=== PATIENT | male | born 1945 | race Caucasian/White ===

== ENCOUNTER → 2016-11-09 | Outpatient (CLI) | payer MEDICARE, OTHER ==
--- NOTE | 2016-11-09 14:06 | CR ---
EXAMINATION: Two-view chest (PA and Lateral views). HISTORY: Atrial fibrillation. FINDINGS: The trachea is midline. The cardiomediastinal silhouette is within normal limits. No pulmonary infil trates, effusions or pneumothorax. Osseous structures appear unremarkable. IMPRESSION: No acute cardiopulmonary process.
[2016-11-09 14:16] LABS: CHLORIDE,CL 107 mmol/L (98-110); SODIUM,NA 141 mmol/L (136-146)
== END ==
LOC: MW.CHIM 13:23
PROVIDERS: ATTEND Internal Medicine
DX: I48.92 Unspecified atrial flutter (principal); I48.0 Paroxysmal atrial fibrillation; R07.89 Other chest pain; M54.9 Dorsalgia, unspecified; Z01.818 Encounter for other preprocedural examination
CPT/HCPCS: 36415; 71020; 71020-26; 80053; 85025; 85610; 85730; 99214

== ENCOUNTER → 2016-11-10 | Outpatient (CLI) | payer MEDICARE, OTHER ==
--- NOTE | 2016-11-10 11:27 | PCM.PRNOTE ---
- Free Text/Narrative Note: Lexiscan Indication pre-op Patient was supervised today during infusion portion of the stress test. The patient received Regadenoson 0.4 mg IV and nuclear agent using standard protocol. Sestamibi Tm99 25 Mci was gievn afterwards Baseline blood pressure is 131/77 with a heart rate 65 EKG sinus rhythm with ST abnormalities Vital signs at injection: Peak blood pressure 115/64 with a heart rate of 76 Vital signs at 4 minutes post injection: Peak blood pressure 122/67 with a heart rate of 72 EKG sinus rhythm without further ST changes Patient complained of apprehensiveness Adverse effects from Elly scan none Test done due to end of protocol Impression 1. electrocardiographically nondiagnostic for ischemia due to chemical protocol 2. nuclear imaging pending
--- NOTE | 2016-11-10 15:43 | NM ---
EXAMINATION: Nuclear medicine myocardial perfusion study HISTORY: Atrial flutter. PROCEDURE: Following intravenous administration of 0.4 mg of Lexiscan and 27.5 mCi of technetium 99m sestamib i, stress SPECT images including gating imaging was performed. FINDINGS: Stress myocardial SPECT images demonstrates mildly decreased uptake along the inferior wall. Most l ikely diaphragmatic attenuation. Review of gated images demonstrates normal wall motion, contractility and wall thickening. The left ventricular ejection fraction is 64 %. The left ventricular chamber size is normal. IMPRESSION: 1. Mildly decreased uptake along the inferior wall, likely diaphragmatic attenuation. Correlate with rest imaging. 2. Normal ventricular chamber size and function with ejection fraction of 54 %.
== END ==
LOC: MW.NM 09:39
PROVIDERS: ATTEND Internal Medicine
DX: I48.92 Unspecified atrial flutter (principal); Z13.6 Encounter for screening for cardiovascular disorders
CPT/HCPCS: 78451; 93017; A9500; J2785

== ENCOUNTER 2017-06-17 00:29 | Emergency (ER) | payer MEDICARE, OTHER ==
--- NOTE | 2017-06-17 01:05 | EDM.PDOC ---
ED HPI GENERAL MEDICAL PROBLEM - General Chief Complaint: ENT Problem Stated Complaint: COLD Time Seen by Provider: 06/17/17 01:03 Source of Information: Reports: Patient - History of Present Illness INITIAL COMMENTS - FREE TEXT/NARRATIVE: HISTORY AND PHYSICAL: History of present illness: [Patient presents with cold symptoms over the last 2-4 weeks runny nose nasal congestion, now complains of swelling sensation around his eyes and sinus pain right greater than left and a mild conjunctivitis No fever nausea vomiting chills sweats no visual changes or ocular pain ] Review of systems: As per history of present illness and below otherwise all systems reviewed and negative. Past medical history: As per history of present illness and as reviewed below otherwise noncontributory. Surgical history: As per history of present illness and as reviewed below otherwise noncontributory. Social history: No reported history of drug or alcohol abuse. Family history: As per history of present illness and as reviewed below otherwise noncontributory. Physical exam: HEENT: Atraumatic, normocephalic, pupils reactive, negative for conjunctival pallor or scleral icterus, mucous membranes moist, throat clear, neck supple, nontender, trachea midline. Sinus tenderness right greater than left supraorbital and infraorbital sinuses involved boggy nasal mucosa with copious nasal discharge Lungs: Clear to auscultation, breath sounds equal bilaterally, chest nontender. Heart: S1S2, regular, negative for clicks, rubs, or JVD. Abdomen: Soft, nondistended, nontender. Negative for masses or hepatosplenomegaly. Negative for costovertebral tenderness. Pelvis: Stable nontender. Genitourinary: Deferred. Rectal: Deferred. Extremities: Atraumatic, negative for cords or calf pain. Neurovascular unremarkable. Neuro: Awake, alert, oriented. Cranial nerves II through XII unremarkable. Cerebellum unremarkable. Motor and sensory unremarkable throughout. Exam nonfocal. Diagnostics: [Influenza Strep] Therapeutics: [Amoxicillin 500 by mouth 3 times a day 10 days Gent Ophthalmic ] Impression: [Acute sinusitis Acute conjunctivitis] Definitive disposition and diagnosis as appropriate pending reevaluation and review of above. right nasal Pain Score (Numeric/FACES): 3 - Related Data Allergies Allergy/AdvReac Type Severity Reaction Status Date / Time No Known Allergies Allergy Verified 06/17/17 00:42 Home Meds: Home Meds Levothyroxine Sodium [Synthroid] 125 mcg PO DAILY 02/21/14 [History] Lutein Extract/Zeaxanthin Ext [Lutein 15 MG Softgel] 1 each PO DAILY 02/21/14 [ History] Rosuvastatin Calcium [Crestor] 5 mg PO DAILY 02/21/14 [History] Past Medical History HEENT History: Reports: None Cardiovascular History: Reports: Other (See Below) Other Cardiovascular History: Atrial Flutter Respiratory History: Reports: None Gastrointestinal History: Reports: None Genitourinary History: Reports: None Musculoskeletal History: Reports: None Neurological History: Reports: None Psychiatric History: Reports: None Endocrine/Metabolic History: Reports: Other (See Below) Other Endocrine/Metabolic History: Hashimotos Disease Hematologic History: Reports: None Immunologic History: Reports: None Oncologic (Cancer) History: Reports: None Dermatologic History: Reports: None - Infectious Disease History Infectious Disease History: Reports: Mumps - Past Surgical History Head Surgeries/Procedures: Reports: None Cardiovascular Surgical History: Reports: Other (See Below) Other Cardiovascular Surgeries/Procedures: Cardiac Ablation Endocrine Surgical History: Reports: None Musculoskeletal Surgical History: Reports: Other (See Below) Other Musculoskeletal Surgeries/Procedures:: Back Surgery Social & Family History - Family History Family Medical History: Noncontributory - Tobacco Use Smoking Status *Q: Former Smoker Years of Tobacco use: 18 Used Tobacco, but Quit: No Month Tobacco Last Used: May Second Hand Smoke Exposure: No - Caffeine Use Caffeine Use: Reports: Coffee - Alcohol Use Days Per Week of Alcohol Use: 3 Number of Drinks Per Day: 5 Total Drinks Per Week: 15 - Recreational Drug Use Recreational Drug Use: No ED ROS ENT - Review of Systems Review Of Systems: ROS reveals no pertinent complaints other than HPI. ED EXAM, ENT - Physical Exam Exam: See Below Course - Vital Signs Last Recorded V/S: Last Vital Signs Temp 97 F 06/17/17 00:43 Pulse 81 06/17/17 00:43 Resp 18 06/17/17 00:43 BP 137/66 06/17/17 00:43 Pulse Ox 98 06/17/17 00:43 - Orders/Labs/Meds Orders: Active Orders 24 hr Category Date Time Status CULTURE STREP A CONFIRMATION [] Stat Lab 06/17/17 00:50 Results STREP SCRN A RAPID W CULT CONF [RM] Stat Lab 06/17/17 00:50 Results Departure - Departure Time of Disposition: : Disposition: Home, Self-Care 01 Condition: Good Clinical Impression: Sinusitis, Conjunctivitis - Discharge Information Referrals: Burt Álvarez MD [Primary Care Provider] - Forms: ED Department Discharge Additional Instructions: The following information is given to patients seen in the emergency department who are being discharged to home. This information is to outline your options for follow-up care. We provide all patients seen in our emergency department with a follow-up referral. The need for follow-up, as well as the timing and circumstances, are variable depending upon the specifics of your emergency department visit. If you don't have a primary care physician on staff, we will provide you with a referral. We always advise you to contact your personal physician following an emergency department visit to inform them of the circumstance of the visit and for follow-up with them and/or the need for any referrals to a consulting specialist. The emergency department will also refer you to a specialist when appropriate. This referral assures that you have the opportunity for follow-up care with a specialist. All of these measure are taken in an effort to provide you with optimal care, which includes your follow-up. Under all circumstances we always encourage you to contact your private physician who remains a resource for coordinating your care. When calling for follow-up care, please make the office aware that this follow-up is from your recent emergency room visit. If for any reason you are refused follow-up, please contact the [facility] emergency department at and asked to speak to the emergency department charge nurse. - My Orders Last 24 Hours: My Active Orders 06/17/17 00:50 CULTURE STREP A CONFIRMATION [RM] Stat STREP SCRN A RAPID W CULT CONF [RM] Stat - Assessment/Plan Last 24 Hours: My Active Orders 06/17/17 00:50 CULTURE STREP A CONFIRMATION [RM] Stat STREP SCRN A RAPID W CULT CONF [RM] Stat
== END 2017-06-17 01:41 | disposition home or self-care (01) ==
LOC: MW.ED 00:29
DX: J01.90 Acute sinusitis, unspecified (principal); H10.33 Unspecified acute conjunctivitis, bilateral; Z79.899 Other long term (current) drug therapy; Z87.891 Personal history of nicotine dependence
CPT/HCPCS: 87081; 87804; 87880; 99282; 99283

== ENCOUNTER 2017-07-09 11:56 | Emergency (ER) | payer MEDICARE, OTHER ==
--- NOTE | 2017-07-09 12:12 | EDM.PDOC ---
ED HPI GENERAL MEDICAL PROBLEM - General Chief Complaint: General Stated Complaint: SINUS CONGESTION Time Seen by Provider: 07/09/17 12:12 Source of Information: Reports: Patient - History of Present Illness INITIAL COMMENTS - FREE TEXT/NARRATIVE: HISTORY AND PHYSICAL: History of present illness: [Patient presents with sinus congestion, he was seen 1-2 weeks ago by myself and treated for a sinus infection, he does have history of allergic rhinitis today he is not tender but he still has boggy mucosa he has been taking some [id number] symptomatic therapies no fever nausea vomiting chills sweats no headache dizziness palpitation about a urine symptoms no chest pain shortness breath ] Review of systems: As per history of present illness and below otherwise all systems reviewed and negative. Past medical history: As per history of present illness and as reviewed below otherwise noncontributory. Surgical history: As per history of present illness and as reviewed below otherwise noncontributory. Social history: No reported history of drug or alcohol abuse. Family history: As per history of present illness and as reviewed below otherwise noncontributory. Physical exam: HEENT: Atraumatic, normocephalic, pupils reactive, negative for conjunctival pallor or scleral icterus, mucous membranes moist, throat clear, neck supple, nontender, trachea midline. Boggy mucosa both nares no exudates sinuses nontender Lungs: Clear to auscultation, breath sounds equal bilaterally, chest nontender. Heart: S1S2, regular, negative for clicks, rubs, or JVD. Abdomen: Soft, nondistended, nontender. Negative for masses or hepatosplenomegaly. Negative for costovertebral tenderness. Pelvis: Stable nontender. Genitourinary: Deferred. Rectal: Deferred. Extremities: Atraumatic, negative for cords or calf pain. Neurovascular unremarkable. Neuro: Awake, alert, oriented. Cranial nerves II through XII unremarkable. Cerebellum unremarkable. Motor and sensory unremarkable throughout. Exam nonfocal. Diagnostics: [Clinical] Therapeutics: [Recommend Claritin daily Patient is essentially maxed out [id number] symptomatic therapies other than an antihistamine, he is using an anti-pot intermittently] Impression: []Allergic rhinitis Definitive disposition and diagnosis as appropriate pending reevaluation and review of above. sinus Pain Score (Numeric/FACES): 3 - Related Data Allergies Allergy/AdvReac Type Severity Reaction Status Date / Time No Known Allergies Allergy Verified 07/09/17 12:10 Home Meds: Home Meds Levothyroxine Sodium [Synthroid] 125 mcg PO DAILY 02/21/14 [History] Lutein Extract/Zeaxanthin Ext [Lutein 15 MG Softgel] 1 each PO DAILY 02/21/14 [ History] Rosuvastatin Calcium [Crestor] 5 mg PO DAILY 02/21/14 [History] Past Medical History HEENT History: Reports: None Cardiovascular History: Reports: Other (See Below) Other Cardiovascular History: Atrial Flutter Respiratory History: Reports: None Gastrointestinal History: Reports: None Genitourinary History: Reports: None Musculoskeletal History: Reports: None Neurological History: Reports: None Psychiatric History: Reports: None Endocrine/Metabolic History: Reports: Other (See Below) Other Endocrine/Metabolic History: Hashimotos Disease Hematologic History: Reports: None Immunologic History: Reports: None Oncologic (Cancer) History: Reports: None Dermatologic History: Reports: None - Infectious Disease History Infectious Disease History: Reports: Mumps - Past Surgical History Head Surgeries/Procedures: Reports: None Cardiovascular Surgical History: Reports: Other (See Below) Other Cardiovascular Surgeries/Procedures: Cardiac Ablation Endocrine Surgical History: Reports: None Musculoskeletal Surgical History: Reports: Other (See Below) Other Musculoskeletal Surgeries/Procedures:: Back Surgery Social & Family History - Family History Family Medical History: Noncontributory - Tobacco Use Smoking Status *Q: Former Smoker Years of Tobacco use: 18 Used Tobacco, but Quit: No Month Tobacco Last Used: May Second Hand Smoke Exposure: No - Caffeine Use Caffeine Use: Reports: Coffee - Alcohol Use Days Per Week of Alcohol Use: 3 Number of Drinks Per Day: 5 Total Drinks Per Week: 15 - Recreational Drug Use Recreational Drug Use: No ED ROS GENERAL - Review of Systems Review Of Systems: ROS reveals no pertinent complaints other than HPI. ED EXAM, GENERAL - Physical Exam Exam: See Below Course - Vital Signs Last Recorded V/S: Last Vital Signs Temp 96.7 F 07/09/17 12:11 Pulse 71 07/09/17 12:11 Resp 18 07/09/17 12:11 BP 146/67 H 07/09/17 12:11 Pulse Ox 98 07/09/17 12:11 Departure - Departure Time of Disposition: 12:50 Disposition: Home, Self-Care 01 Condition: Good Clinical Impression: Allergic rhinitis - Discharge Information Referrals: Burt Álvarez MD [Primary Care Provider] - Forms: ED Department Discharge Additional Instructions: The following information is given to patients seen in the emergency department who are being discharged to home. This information is to outline your options for follow-up care. We provide all patients seen in our emergency department with a follow-up referral. The need for follow-up, as well as the timing and circumstances, are variable depending upon the specifics of your emergency department visit. If you don't have a primary care physician on staff, we will provide you with a referral. We always advise you to contact your personal physician following an emergency department visit to inform them of the circumstance of the visit and for follow-up with them and/or the need for any referrals to a consulting specialist. The emergency department will also refer you to a specialist when appropriate. This referral assures that you have the opportunity for follow-up care with a specialist. All of these measure are taken in an effort to provide you with optimal care, which includes your follow-up. Under all circumstances we always encourage you to contact your private physician who remains a resource for coordinating your care. When calling for follow-up care, please make the office aware that this follow-up is from your recent emergency room visit. If for any reason you are refused follow-up, please contact the [facility] emergency department at and asked to speak to the emergency department charge nurse.
== END 2017-07-09 12:59 | disposition home or self-care (01) ==
LOC: MW.ED 11:56
DX: J30.9 Allergic rhinitis, unspecified (principal); Z87.891 Personal history of nicotine dependence; Z79.899 Other long term (current) drug therapy
CPT/HCPCS: 99282

== ENCOUNTER 2023-04-04 17:49 | Emergency (ER) | payer MEDICARE, OTHER ==
[2023-04-04] MEDS ORDERED: ceFAZolin 2 GM in Sodium Chloride 0.9% 50 ML IV ONE (17:59)
[2023-04-04 18:20] LABS: BASOPHILS ABSOLUTE AUTO 0.05 K/uL (0.00-0.20); BASOPHILS PERCENT AUTO 0.7 % (0.0-1.0); EOSINOPHILS ABSOLUTE AUTO 0.24 K/uL (0.00-0.45); EOSINOPHILS PERCENT AUTO 3.5 % (0.0-6.0); HEMATOCRIT 40.3 % (42.0-52.0); HEMOGLOBIN 13.4 g/dL (14.0-18.0); IMMATURE GRAN ABSOLUTE AUTO 0.02 K/uL (0.00-0.05); IMMATURE GRAN PERCENT AUTO 0.3 % (0.0-0.4); LYMPHOCYTES PERCENT AUTO 26.2 % (24.0-44.0); MEAN CORPUSCULAR HEMOGLOBIN 31.7 pg (28.0-32.0); MEAN CORPUSCULAR HGB CONC 33.3 g/dL (32.0-36.0); MEAN CORPUSCULAR VOLUME 95.3 fL (83.0-99.0); MEAN PLATELET VOLUME 9.1 fL (9.4-12.4); MONOCYTES ABSOLUTE AUTO 0.59 K/uL (0.00-0.80); MONOCYTES PERCENT AUTO 8.6 % (0.0-8.0); NEUTROPHILS ABSOLUTE AUTO 4.2 K/uL (1.8-7.7); NEUTROPHILS PERCENT AUTO 60.7 % (41.0-71.0); PLATELET COUNT,PLT 210 K/uL (150-400); RED BLOOD CELL COUNT 4.23 M/uL (4.52-5.90); WHITE BLOOD CELL COUNT,WBC 6.87 K/uL (3.9-11.3)
[2023-04-04 19:13] LABS: A/G RATIO 1.2 (0.9-1.6); ALBUMIN 3.9 g/dL (3.4-5.0); BILIRUBIN TOTAL 0.3 mg/dL (0.2-1.0); CALCIUM 8.8 mg/dL (8.5-10.1); CARBON DIOXIDE,CO2 27.7 mmol/L (21.0-32.0); CREATININE 1.1 mg/dL (0.8-1.3); EST CRCL DRUG DOSING (CG) 59.9 mL/min; POTASSIUM,K 3.9 mmol/L (3.5-5.1); PROTEIN TOTAL,TP 7.2 g/dL (6.4-8.2)
[2023-04-04] MEDS ORDERED: Morphine 2 MG/ML SYRINGE IVPUSH ONE (19:13)
[2023-04-04] MEDS ORDERED: Ondansetron 4 MG/2 ML SDV IVPUSH ONE (19:13)
[2023-04-04] MEDS ORDERED: Naloxone 0.4 MG/ML SDV IVPUSH PRN (19:13)
== END 2023-04-04 20:31 ==
LOC: MW.ED 17:49
DX: S68.124A Partial traumatic metacarpophalangeal amputation of right ring finger, initial encounter (principal); S61.214A Laceration without foreign body of right ring finger without damage to nail, initial encounter; E03.9 Hypothyroidism, unspecified; I10 Essential (primary) hypertension; Z79.899 Other long term (current) drug therapy; W23.0XXA Caught, crushed, jammed, or pinched between moving objects, initial encounter
CPT/HCPCS: 36415; 73130; 80053; 85025; 96365; 96375; 99285; J0690; J2270; J2405; J3490

== ENCOUNTER 2023-04-08 16:41 | Emergency (ER) | payer MEDICARE, OTHER | END 2023-04-08 19:17 | disposition home or self-care (01) | LOC: MW.ED 16:41 | DX: T81.49XA Infection following a procedure, other surgical site, initial encounter (principal) | CPT/HCPCS: 99283 ==

== ENCOUNTER 2023-07-25 18:52 | Emergency (ER) | payer MEDICARE, OTHER | END 2023-07-25 20:50 | disposition home or self-care (01) | LOC: MW.ED 18:52 | DX: Z47.81 Encounter for orthopedic aftercare following surgical amputation (principal); I10 Essential (primary) hypertension; Z79.899 Other long term (current) drug therapy; Z90.49 Acquired absence of other specified parts of digestive tract | CPT/HCPCS: 73140-26-F9; 73140-F9; 99283 ==

== ENCOUNTER 2023-10-14 18:58 | Emergency (ER) | payer MEDICARE, OTHER | END 2023-10-14 20:10 | disposition home or self-care (01) | LOC: MW.ED 18:58 | DX: M79.644 Pain in right finger(s) (principal); I10 Essential (primary) hypertension; Z79.899 Other long term (current) drug therapy; Z90.49 Acquired absence of other specified parts of digestive tract | CPT/HCPCS: 99283 ==

== ENCOUNTER 2024-02-09 07:41 | Day surgery (SDC) | payer MEDICARE, OTHER ==
[2024-02-09] MEDS: Lactated Ringers 1,000 ML IV SCH (08:07)
[2024-02-09] MEDS ORDERED: propofoL 50 ML ONE (09:26)
[2024-02-09] MEDS ORDERED: Propofol 200 MG/20 ML SDV ONE (09:45)
== END 2024-02-09 12:10 | disposition home or self-care (01) ==
LOC: MW.SDS 07:41
PROVIDERS: ATTEND Surgery
DX: K29.50 Unspecified chronic gastritis without bleeding (principal); K31.A0 Gastric intestinal metaplasia, unspecified; K31.7 Polyp of stomach and duodenum; K21.00 Gastro-esophageal reflux disease with esophagitis, without bleeding; D64.9 Anemia, unspecified; K22.89 Other specified disease of esophagus; K64.8 Other hemorrhoids; I10 Essential (primary) hypertension; E78.00 Pure hypercholesterolemia, unspecified; E03.9 Hypothyroidism, unspecified; Z87.891 Personal history of nicotine dependence; Z91.09 Other allergy status, other than to drugs and biological substances; Z79.899 Other long term (current) drug therapy; Z79.890 Hormone replacement therapy
CPT/HCPCS: 43239; 45378; 88305; J2704; J7120; 00813; 99100

== ENCOUNTER 2024-03-20 19:29 | Emergency (ER) | payer MEDICARE, OTHER | END 2024-03-20 20:30 | disposition home or self-care (01) | LOC: MW.ED 19:29 | DX: S61.412A Laceration without foreign body of left hand, initial encounter (principal); I10 Essential (primary) hypertension; E78.00 Pure hypercholesterolemia, unspecified; E03.9 Hypothyroidism, unspecified; Z90.49 Acquired absence of other specified parts of digestive tract; Z75.8 Other problems related to medical facilities and other health care; Z79.899 Other long term (current) drug therapy; Z79.890 Hormone replacement therapy; W23.0XXA Caught, crushed, jammed, or pinched between moving objects, initial encounter | CPT/HCPCS: 29125; 73130-26-LT; 73130-LT; 99283-25 ==